=== PATIENT | male | born 1985 | race Caucasian/White ===

== ENCOUNTER 2016-10-21 11:57 | Emergency (ER) | payer MEDICAID ==
[~2016-10-21] VITALS: Ht 157.5 cm; Wt 55.0 kg
[2016-10-21 11:59] VITALS: Ht 157.5 cm; Wt 55.0 kg
[2016-10-21] MEDS ORDERED: IBUPROFEN 600 MG TAB PO ONE (12:30)
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
[2016-10-21] MEDS ORDERED: IBUP-1542 PO (13:35)
[2016-10-21 13:43] VITALS: BP 128/82; PULSE 72; RESP 17; TEMP 98.2
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
== END 2016-10-21 13:43 | disposition home or self-care (01) ==
LOC: FTE 11:57
DX: S13.9XXA Sprain of joints and ligaments of unspecified parts of neck, initial encounter (principal); V49.40XA Driver injured in collision with unspecified motor vehicles in traffic accident, initial encounter
CPT/HCPCS: 72040; Z7502; Z7610